=== PATIENT | male | born 1965 | race American Indian/Alaskan Native ===

== ENCOUNTER 2017-12-16 20:47 | Emergency (ER) | payer BC ==
[2017-12-16] MEDS ORDERED: DiphenhydrAMINE 50 mg/ml Inj IVP STA (20:58)
--- NOTE | 2017-12-16 21:14 | ED PDOC ---
Arrival/HPI - General Chief Complaint: Allergic Reaction Time Seen by Provider: 12/16/17 20:53 - History of Present Illness Narrative History of Present Illness (Text): 12/16/17 21:11 Patient is a 52 y/o M presenting with allergic reaction. He reports that 2 days ago he used a new hair dye. He reports that the dye made his scalp very itchy. He reports that yesterday he developed swelling under his L eye where the dye fell and then he also developed swelling until his chin. Denies chest pain or shortness of breath. Denies change in phonation, difficulty swallowing or change in voice. Denies fever. Denies dental pain. Denies taking anything for the pain. Past Medical History - Infectious Disease Hx of Infectious Diseases: None - Cardiac Hx Cardiac Disorders: No - Pulmonary Hx Respiratory Disorders: No - Neurological Hx Neurological Disorder: No - HEENT Hx HEENT Disorder: No - Renal Hx Renal Disorder: No - Endocrine/Metabolic Hx Endocrine Disorders: No - Hematological/Oncological Hx Blood Disorders: No - Integumentary Hx Dermatological Disorder: No - Musculoskeletal/Rheumatological Hx Musculoskeletal Disorders: No - Gastrointestinal Hx Gastrointestinal Disorders: No - Genitourinary/Gynecological Hx Genitourinary Disorders: No - Psychiatric Hx Psychophysiologic Disorder: No Hx Substance Use: No - Surgical History Other/Comment: rt ankle fx c pains - Anesthesia Hx Anesthesia: Yes Hx Anesthesia Reactions: No Hx Malignant Hyperthermia: No Family/Social History Family/Social History: No Known Family HX Smoking Status: Never Smoked Hx Alcohol Use: No Hx Substance Use: No Allergies/Home Meds Allergies/Adverse Reactions: Allergies No Known Allergies Allergy (Unverified 12/16/17 20:58) Home Medications: Home Meds Medication Instructions Recorded Confirmed Glipizide [Glipizide Xl] PO 12/16/17 Losartan [Cozaar] PO 12/16/17 MetFORMIN [glucoPHAGE] PO 12/16/17 Review of Systems - Review of Systems Constitutional: absent: Weight Change, Fevers Eyes: absent: Vision Changes ENT: absent: Hearing Changes, Tinnitus, TMJ Pain, Voice Changes, Sore Throat, Rhinorrhea, Epistaxis, Sinus Congestion Respiratory: absent: SOB, Cough, Sputum, Wheezing Cardiovascular: absent: Chest Pain Gastrointestinal: absent: Abdominal Pain, Constipation, Diarrhea, Nausea, Vomiting Musculoskeletal: absent: Arthralgias Skin: Rash Physical Exam Vital Signs Temp Pulse Resp BP Pulse Ox 12/16/17 21:50 98.0 F 80 19 137/97 H 98 Temperature: Afebrile Blood Pressure: Normal Pulse: Regular Respiratory Rate: Normal Appearance: Positive for: Well-Appearing, Non-Toxic, Comfortable Pain Distress: None Mental Status: Positive for: Alert and Oriented X 3 - Systems Exam Head: Present: Atraumatic, Normocephalic Pupils: Present: PERRL Extroacular Muscles: Present: EOMI, Other (puffiness under L eye) Conjunctiva: Present: Normal Mouth: Present: Moist Mucous Membranes, Normal Lips, Normal Tounge, Normal Teeth Pharnyx: Present: Normal. No: ERYTHEMA, EXUDATE, TONSILS ENLARGED, Peritonsilar Swelling, Uvular Deviation, Muffled/Hoarse Voice, Strider, Soft Palate/Uvular Edema Nose (External): Present: Atraumatic Nose (Internal): Present: Normal Inspection Neck: Present: Normal Range of Motion Respiratory/Chest: Present: Clear to Auscultation, Good Air Exchange. No: Respiratory Distress, Accessory Muscle Use Cardiovascular: Present: Regular Rate and Rhythm, Normal S1, S2. No: Murmurs Abdomen: No: Tenderness, Distention Upper Extremity: Present: Normal Inspection Lower Extremity: Present: Normal Inspection Neurological: Present: GCS=15, CN II-XII Intact, Speech Normal Skin: Present: Other (excoriations to scalp, excoriations behind b/l ears) Medical Decision Making ED Course and Treatment: 12/16/17 21:14 Symptoms have been persistent since exposure 2 days ago. No respiratory involvement. Improvement after benadryl, pepcid and steroids. Instructed not to use dye again 12/16/17 21:31 Symptoms improved after benadryl, pepcid and steroids. Swelling resolved. Patient continues to deny shortness of breath. Lungs cta b/l. He was given detailed return instructions. - Medication Orders Current Medication Orders: Discontinued Medications Diphenhydramine HCl (Benadryl) 50 mg IVP STAT STA Stop: 12/16/17 20:59 Last Admin: 12/16/17 21:11 Dose: 50 mg IVP Administration Document 12/16/17 21:11 [email or web address] (Rec: 12/16/17 21:11 [email or web address] [facility] [id number] [facility] Charges for Administration # of IVP Administrations 1 Famotidine (Pepcid) 20 mg IVP STAT STA Stop: 12/16/17 20:59 Last Admin: 12/16/17 21:11 Dose: 20 mg IVP Administration Document 12/16/17 21:11 [email or web address] (Rec: 12/16/17 21:11 [email or web address] [id number]) Charges for Administration # of IVP Administrations 1 Methylprednisolone (Solu-Medrol) 125 mg IVP STAT STA Stop: 12/16/17 20:59 Last Admin: 12/16/17 21:11 Dose: 125 mg IVP Administration Document 12/16/17 21:11 [email or web address] (Rec: 12/16/17 21:11 [email or web address] [id number]) Charges for Administration # of IVP Administrations 1 Disposition/Present on Arrival - Present on Arrival Any Indicators Present on Arrival: No History of DVT/PE: No History of Uncontrolled Diabetes: No Urinary Catheter: No History of Decub. Ulcer: No History Surgical Site Infection Following: None - Disposition Have Diagnosis and Disposition been Completed?: Yes Diagnosis: Allergic reaction Disposition: HOME/ ROUTINE Disposition Time: 21:18 Patient Plan: Discharge Condition: GOOD Discharge Instructions (ExitCare): Adverse Drug Reactions, Adult Additional Instructions: Follow-up with PMD within 2 days. Do not use hair dye again. Take full course of steroids. Use benadryl as needed after 3 days. Epi pen for life threatening reaction. Return immediately with any worsening symptoms. Prescriptions: DiphenhydrAMINE [Benadryl] 50 mg PO Q6 #20 cap Epinephrine HCl [Epipen Auto-Injector] 1 dose IM ONCE #1 unit Prednisone 50 mg PO DAILY #3 tablet Forms: [employer] (Kinyarwanda), WORK NOTE
[2017-12-16 22:03] VITALS: BP 137/97; PULSE 80; RESP 19; O2SAT 98
[2017-12-16 22:04] VITALS: TEMP 98
== END 2017-12-16 21:50 | disposition home or self-care (01) ==
LOC: ED 20:47
DX: T78.40XA Allergy, unspecified, initial encounter (principal); X58.XXXA Exposure to other specified factors, initial encounter
CPT/HCPCS: 96374; 96375; 99282; J1200; J2930